=== PATIENT | male | born 1985 | race Caucasian/White ===

== ENCOUNTER 2017-01-05 13:45 | Emergency (ER) | payer BC ==
[~2017-01-05] VITALS: Ht 170.2 cm; Wt 106.6 kg
[2017-01-05 13:51] VITALS: BP_SYST 133
--- NOTE | 2017-01-05 15:30 | NUR ---
GABRIELLE KOROMA HAND BRUSH FILLER at bedside examining patient.
[2017-01-05 15:40] LABS: BILIRUBIN,URINE NEGATIVE (NEGATIVE); BLOOD, URINE NEGATIVE (NEGATIVE); CLARITY/URINE CLEAR (CLEAR); COLOR,URINE YELLOW (YELLOW); GLUCOSE,URINE NEGATIVE (NEGATIVE); KETONES,URINE TRACE (NEGATIVE); LEUKOCYTE ESTERASE ,URINE NEGATIVE (NEGATIVE); NITRITE, URINE NEGATIVE (NEGATIVE); PH,URINE 7.5 (5.0-8.0); PROTEIN URINE 1+ (NEGATIVE)
[2017-01-05 15:45] LABS: BACTERIA,URINE FEW /HPF (None Seen); RBC,URINE 0-3 /HPF (0-3); WBC,URINE 0-3 /HPF (0-3)
[2017-01-05] MEDS ORDERED: NACL 0.9% 1,000 ML IV ONE (15:45)
[2017-01-05] MEDS ORDERED: KETOROLAC TROMETHAMINE 30 MG VIAL IVP ONE (15:45)
[2017-01-05 15:59] LABS: BASOPHILS # (AUTO) 0.1 K/uL (0.0-0.2); BASOPHILS % (AUTO) 0.9 % (0.0-2.0); EOSINOPHILS # (AUTO) 0.1 K/uL (0.0-0.4); HEMOGLOBIN 14.6 g/dL (14.0-18.0); LYMPHOCYTES # (AUTO) 2.3 K/uL (1.0-5.5); LYMPHOCYTES % (AUTO) 25.7 % (20.5-51.5); MEAN CORPUSCULAR HEMOGLOBIN 28 pg (27-31); MEAN CORPUSCULAR HGB CONC 33 % (32-36); MEAN CORPUSCULAR VOLUME 86 fL (79.0-98.0); MONOCYTES # (AUTO) 0.5 K/uL (0.0-1.0); MONOCYTES % (AUTO) 5.5 % (1.7-9.3); NEUTROPHILS # (AUTO) 5.9 K/uL (1.8-7.7); NEUTROPHILS % (AUTO) 66.9 % (40.0-70.0); PLATELET COUNT (AUTO) 264 K/uL (130-430); RED BLOOD CELL COUNT(AUTO) 5.26 MIL/uL (4.2-6.2); WHITE BLOOD COUNT (AUTO) 8.9 K/uL (4.8-10.8)
[2017-01-05 16:08] LABS: CALCIUM 8.8 mg/dL (8.4-11.0); CREATININE 0.81 mg/dL (0.55-1.30); POTASSIUM 4.5 mmol/L (3.5-5.1)
[2017-01-05 16:12] LABS: ALBUMIN 3.7 g/dL (3.4-4.8); TOTAL BILIRUBIN 0.4 mg/dL (0.0-1.0); TOTAL PROTEIN, SERUM 7.3 g/dL (6.4-8.3)
--- NOTE | 2017-01-05 17:02 | NUR ---
TAKEN TO CT SCAN DEPT.
--- NOTE | 2017-01-05 17:14 | NUR ---
RETURNED TO ROOM 1.
--- NOTE | 2017-01-05 17:30 | NUR ---
# 22 gauge angiocath placed to LEFT A/C. Use of aseptic technique. Opsite placed over site. Blood return noted. Flushed with 10 cc of normal saline. No evidence of infiltration noted. Patient tolerated well.
--- NOTE | 2017-01-05 17:32 | NUR ---
MEDICATED WITH TORADOL 30 MG IVP FOR LEFT ABDOMINAL DISCOMFORT, 5/10 SCALE.
[2017-01-05] MEDS ORDERED: NA PHOS,M-B/NA PHOS,DI-BA 118 ML (FLEET ENEMA) RC ONE (17:45)
[2017-01-05] MEDS ORDERED: MAGNESIUM CITRATE 300 ML ORAL SOLUTION PO ONE (17:45)
[2017-01-05 18:20] VITALS: BP_SYST 136
--- NOTE | 2017-01-05 18:20 | NUR ---
Patient given written and verbal discharge instructions and verbalizes understanding. ER MD discussed with patient the results and treatment provided. Patient in stable condition. ID arm band removed. IV catheter removed intact and dressing applied, no active bleeding. Rx of Citrucel and Docusate Sodium given. Patient educated on pain management and to follow up with PMD. Pain Scale 0/10. Opportunity for questions provided and answered.
== END 2017-01-05 18:20 | disposition home or self-care (01) ==
LOC: SED 13:45
DX: R10.12 Left upper quadrant pain (principal)
CPT/HCPCS: 36415; 74176; 80053; 81000; 83690; 85025; 96361; 96374; 99285; J1885; J7030